=== PATIENT | male | born 1975 | race Caucasian/White ===

== ENCOUNTER 2017-07-24 06:35 | Emergency (ER) | payer BC ==
[~2017-07-24] VITALS: Ht 182.9 cm; Wt 100.4 kg
[~2017-07-24 06:35] MED LIST: BACTRIM,SEPT1 TABLET PO; CLEOCIN300 MG PO; CLINDAMYCIN HC300 MG PO; ERYTHROMYC1 APPLICAT LEFT EYE; FISH OIL300 MG PO; HYDROCODON-ACE1 EAC7 PO; LORTAB 5-325 M1 EACH PO; MEN'S ONE DAIL1 EACH PO; MOBIC7.5 MG PO; NAPROSYN500 MG PO; NAPROXEN500 MG PO; NOHOMEMEDS; NORCO 7.5/321 TABLET PO; PREDNISONE20 MG PO; RYBIX ODT50 MG PO
[2017-07-24 06:38] VITALS: BP 139/86
[2017-07-24] MEDS ORDERED: MOTRIN800 MG PO (07:34)
[2017-07-24] MEDS ORDERED: CLEOCIN300 MG PO (07:34)
== END 2017-07-24 08:01 | disposition home or self-care (01) ==
LOC: EME 06:35
DX: K02.9 Dental caries, unspecified (principal); F17.200 Nicotine dependence, unspecified, uncomplicated; Z88.0 Allergy status to penicillin
CPT/HCPCS: 99281; 99283